=== PATIENT | male | born 2000 | race Two or more races ===

== ENCOUNTER 2022-12-29 04:52 | Emergency (ER) | payer MEDICAID ==
[~2022-12-29] VITALS: Ht 177.8 cm; Wt 69.0 kg
[2022-12-29] MEDS ORDERED: TRIA0.02 TOP (06:53)
[2022-12-29] MEDS ORDERED: CEPH500C PO (06:53)
[2022-12-29 07:37] VITALS: BP 134/85; PULSE 82; RESP 16; TEMP 98.1; O2SAT 100
== END 2022-12-29 07:17 | disposition home or self-care (01) ==
LOC: ER 04:52
DX: S90.562A Insect bite (nonvenomous), left ankle, initial encounter (principal); W57.XXXA Bitten or stung by nonvenomous insect and other nonvenomous arthropods, initial encounter; Y93.89 Activity, other specified; Y92.89 Other specified places as the place of occurrence of the external cause; Y99.8 Other external cause status